=== PATIENT | male | born 1945 | race Caucasian/White ===

== ENCOUNTER 2018-08-14 15:35 | Emergency (ER) | payer MEDICARE, OTHER ==
[~2018-08-14] VITALS: Ht 172.7 cm; Wt 73.5 kg
[2018-08-14 15:49] VITALS: BP 128/76
--- NOTE | 2018-08-14 15:57 | NUR ---
Patient ambulated to bed 6. RN evaluating patient at bedside.
--- NOTE | 2018-08-14 16:02 | NUR ---
PATIENT PRESENTS TO ED WITH C/O GENERALIZED WEAKNESS, NAUSEA/VOMITING X 2 HR AGO. B/S 150 AT TIME OF TRIAGE. PUPILS EQUAL AND REACTIVE TO LIGHT BILATERALLY. NO FACIAL DROOP NOTED. NO SMILE DEFICIT NOTED. CLEAR SPEECH. PT IS ALERT AND ORIENTED TO PERSON, PLACE, TIME AND EVENT. BILATERAL HAND CORRECTIONAL MANAGER EQUAL. BILATERAL FOOT PUSH EQUAL. PATIENT DENIES PAIN AT THIS TIME. VSS; PATIENT PLACED ON GOWN; POSITIONED FOR COMFORT; BEDRAILS UP X1; BED DOWN. ER MD TO EVALUATE PT.
--- NOTE | 2018-08-14 16:12 | NUR ---
Dr. Pope evaluating patient at bedside.
--- NOTE | 2018-08-14 16:22 | NUR ---
PT TAKEN TO CT SCAN VIA W/C BY [facility].
--- NOTE | 2018-08-14 16:48 | NUR ---
PT RETURNED FROM CT
[2018-08-14 17:47] VITALS: BP 142/80
== END 2018-08-14 17:50 | disposition home or self-care (01) ==
LOC: MED 15:35
DX: R42 Dizziness and giddiness (principal); R11.10 Vomiting, unspecified; E11.9 Type 2 diabetes mellitus without complications; I10 Essential (primary) hypertension; Z88.0 Allergy status to penicillin
CPT/HCPCS: 70450; 71250; 81002; 93005; 99284

== ENCOUNTER 2019-05-14 19:46 | Emergency (ER) | payer MEDICARE, OTHER ==
[~2019-05-14] VITALS: Ht 188 cm; Wt 76.2 kg
[2019-05-14 20:01] VITALS: BP 159/61
--- NOTE | 2019-05-14 20:12 | NUR ---
73/M CC: LEFT ARM PAIN THAT DOES NOT RADIATE. STATES THAT HE HAD FLU + PNA VACCINE EARLIER TODAY AND SEVERE L ARM PAIN 10/ BY ASSOCIATION. ALLERGIES TO PCN. NO SIGNS OF ACUTE DISTRESS AT THIS TIME. BED IN LOWEST POSITION. VS WNL
[2019-05-14] MEDS ORDERED: HYDROcodone/APAP 5/325 MG 1 TAB TAB PO ONE (20:55)
[2019-05-14 23:04] VITALS: BP 159/61
--- NOTE | 2019-05-14 23:04 | NUR ---
Patient discharged with v/s stable. Written and verbal after care instructions given and explained. Patient alert, oriented and verbalized understanding of instructions. Ambulatory with steady gait. All questions addressed prior to discharge. ID band removed. Patient advised to follow up with PMD. Rx of IBUPROFEN, AND LIDOCAINE TOPICAL given. Patient educated on indication of medication including possible reaction and side effects. Opportunity to ask questions provided and answered.
== END 2019-05-14 23:04 | disposition home or self-care (01) ==
LOC: MED 19:46
DX: M79.602 Pain in left arm (principal); E11.9 Type 2 diabetes mellitus without complications; I10 Essential (primary) hypertension; Z88.0 Allergy status to penicillin
CPT/HCPCS: 36415; 82553; 99283